=== PATIENT | male | born 1945 | race Caucasian/White ===

== ENCOUNTER 2022-02-04 13:40 | Emergency (ER) | payer MEDICARE, SELFPAY ==
[2022-02-04] VITALS (14 sets, daily range): BP systolic 132–166; BP diastolic 70–93; PULSE 56–67; RESP 10–23; TEMP 36.6; O2SAT 95–99
--- NOTE | 2022-02-04 13:30 | RT.EKG_ITS ---
APPROVED REPORT Exam: Resting ECG Reason for Exam: chest pain Patient Location: E HR:60 bpm ECG Measurements Heart Rate 60 AXIS IL 196 P 24 QRSd 93 QRS 40 QT 405 T 242 QTc 405 Conclusion Sinus rhythm...normal P axis, V-rate 60- 99 sinus rhythm, normal axis, normal intervals, flattened T waves inferior laterally
--- NOTE | 2022-02-04 14:15 | DI.CT_ITS ---
Exam(s) CT BRAIN NECK CTA EXAM: CT BRAIN NECK CTA CLINICAL HISTORY: dizziness, unsteadiness. TECHNIQUE: Imaging Protocol: Axial CT angiography was performed with multi-slice acquisition and mu lti-planar and 3D reconstructions. CONTRAST MATERIAL: Intravenous: Omnipaque 350 Contrast volume:structured data in ml COMPARISON: No exams were available for comparison FINDINGS: CT Head W/O and W contrast: Ventricles and Extra axial spaces: Normal in size and morphology for the patient's age. Hemorrhage: None. Cerebral parenchyma: Cerebral atrophy, otherwise normal. No visible white matter changes. Midline shift: None. Brainstem/Cerebellum: Normal. Calvarium: Normal. Visualized Paranasal sinuses/Mastoids: Mucous retention floor left maxillary sinus. Soft Tissues: Unremarkable. Enhancement: Normal. Orbits: Unremarkable. CTA Brain W: Internal Carotid Arteries: Petrous: Normal. Cavernous: Normal. Cerebral: Normal. Middle Cerebral Arteries: Right: No aneurysm, occlusion or significant stenosis. Left: No aneurysm, occlusion or significant stenosis. Anterior Cerebral Arteries: Right: No aneurysm, occlusion or significant stenosis. Left: No aneurysm, occlusion or significant stenosis. Posterior cerebral Arteries: Right: No aneurysm, occlusion or significant stenosis. Left: No aneurysm, occlusion or significant stenosis. Vertebral Arteries: Right: Focal calcification distal right vertebral artery. No aneurysm, occlusion or significant sten osis. Left: No aneurysm, occlusion or significant stenosis. Basilar Artery: No aneurysm, occlusion or significant stenosis. CTA Neck W: Common Carotid: Right: Moderate calcification at bulb. No aneurysm, occlusion or significant stenosis. Left: [id number] calcification at bulb. No aneurysm, occlusion or significant stenosis. External Carotid: Right: No aneurysm, occlusion or significant stenosis. Left: No aneurysm, occlusion or significant stenosis. Internal Carotid: Right: Moderate proximal calcification, mild stenosis. No aneurysm, occlusion or dissection. Tortuo us in midportion Left: [id number] proximal calcification. No aneurysm, occlusion or significant stenosis. Tortu ous and mid portion. Vertebral Artery: Right: No aneurysm, occlusion or significant stenosis. Left: No aneurysm, occlusion or significant stenosis. Lung Apices: Normal. Bones: Degenerative changes in the spine. Soft Tissues: Normal. IMPRESSION: 1. Focal calcification distal right vertebral artery without significant stenosis, otherwise normal C TA examination of the [place] [facility] [place]. 2. Atrophy, otherwise unremarkable CT Head. 3. Calcification at the common carotid bulb and proximal internal carotid arteries, right greater sil n left. Mild stenosis of proximal right internal carotid artery. Remaining vessels no significant s tenosis or evidence of dissection. 4. Results of this exam have been verbally communicated with the emergency department provider. RADIATION DOSE DELIVERED: 2,264.05mGy.cm Total DLP DATA REPOSITORY: All CT scans at this facility are submitted to the National Radiology Data Registry (NRDR) Dose Index Registry (DIR) with the [employer] (ACR). RADIATION OPTIMIZATION: All CT scans at this facility use at least one of these dose optimization te chniques: automated exposure control; mA and/or kV adjustment per patient size (includes targeted exa ms where dose is matched to clinical indication); or iterative reconstruction.
--- NOTE | 2022-02-04 14:31 | ED.GENADUL_ITS ---
Discharge Plan Disposition Patient Disposition: STILL A PATIENT Condition: Improving Discharge Details Chief Complaint: GenMedical Primary Care Provider: Eyal Sahu ED Provider: Eyal Harrell Home Meds and New Rx's Prescriptions: No Action No Known Home Meds 0RF Medical Decision Making 76-year-old male history of conductive and sensorineural hearing loss, presenting with resolved unsteadiness on his feet began around 1130 this morning, occurred while stepping out of his truck, self resolved, associated mild nausea no vomiting, denies headache or chest pain no shortness of breath, no history of stroke or NV, back to baseline per patient and his family, patient has normal speech normal cranial nerves normal strength no truncal ataxia, patient does endorse improved hearing in his left ear although no change in his hearing aid settings or prescriptions, consider inner ear process/vertigo versus orthostasis versus must consider TIA versus less likely acute CVA versus less likely ACS versus must consider electrolyte abnormality mild dehydration versus unlikely infectious process. Patient's TMs are clear bilaterally, behaving normally hemodynamically stable, will perform CT CTA head neck to assess vertebral circulation, basic labs, fluids, trial of meclizine close reassessment 15: 21 patient resting comfortably no acute distress asymptomatic, ambulatory without assistance, orthostatics were assessed at bedside with normal heart rate and blood pressure in a supine seated and standing position. Awaiting CT CTA head neck, urinalysis, will reassess symptomatology after fluids and meclizine. HPI General Date/Time Provider Initiated Documentation: 02/04/22 13:48 . HPI Narrative: 76-year-old male history of conductive hearing loss, presents with episode of unsteadiness on his feet that began around 1130 this morning, patient was getting out of his truck felt off balance, had slight nausea no vomiting, denies headache chest pain shortness of breath, denies history of prior stroke or NV. Behaving normally per . Episode self resolved and patient feels as if he is back to normal. Denies change in his hearing aid prescriptions however does feel like he is hearing better out of his left ear over the last day. No recent illnesses such as vomiting diarrhea or other systemic signs of illness. Related Data Home Medications Medication Instructions Recorded Confirmed Unknown [No Known Home Meds] 07/12/21 02/04/22 Allergies Allergy/AdvReac Type Severity Reaction Status Date / Time No Known Allergies Allergy Verified 02/04/22 13:53 General Stated Complaint: GenMedical KIANA: 3 Review of Systems Narrative: Review of Systems Constitutional: negative Eyes: negative ENT: negative Cardiovascular: negative Respiratory: negative Gastrointestinal: negative : negative Musculoskeletal: negative Skin: negative Neurologic: Unsteadiness Psych: negative PFSH All Active Problems Mixed conductive and sensorineural hearing loss, bilateral (Acute) Impairment of speech discrimination (Acute) External ear conductive hearing loss (Acute) Sensorineural hearing loss of both ears (Acute) Impacted cerumen of both ears (Acute) Mixed hearing loss, bilateral (Acute 10/18/13) Mixed hearing loss, bilateral (Acute 07/04/16) Vertigo (Acute 06/22/15) Family History Father , 58 Stroke Heart disease Mother , 87 No problems noted. Son No problems noted. Son No problems noted. 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 Pets and animals: Yes (2) Pets and animals: cat(s) What is your relationship status?: Panel score (0-1 are the most socially isolated patients): 1 Do you feel safe at home: Yes Do you feel safe in your relationship?: Yes Exam Narrative Exam Narrative: Physical Examination General: alert, awake, cooperative, resting comfortably, no acute distress HEENT: normocephalic, atraumatic; PERRL, EOM intact, conjunctiva normal; no nasal discharge; moist mucous membranes, oral and pharyngeal mucosa normal, tolerating secretions Neck: supple, trachea midline; full ROM Chest: normal to inspection Respiratory: normal respiratory effort, speaking in full sentences, clear to auscultation, no wheezing, rales or rhonchi Cardiac: regular rate, regular rhythm, S1S2 intact, no murmurs rubs or gallops GI: abdomen soft, non-tender, non-distended; no palpable mass or hepatosplenomegaly Skin: no lesions, rashes or trauma appreciated Neuro: AAOx3, cranial nerves II through XII intact, 5 out of 5 strength upper and lower extremities bilaterally, [id number] normal, no truncal ataxia, no nystagmus, normal speech, walking normally without ataxia Psych: Appropriate mood and affect Course Vital Signs Vital signs: Vital Signs Temperature 36.6 C 02/04/22 13:46 Pulse 67 02/04/22 13:46 Respiratory Rate 16 02/04/22 13:46 Blood Pressure 132/72 02/04/22 13:46 Pulse Oximetry 97 02/04/22 13:46 Temperature 36.6 C 02/04/22 13:46 Pulse 59 L 02/04/22 14:01 Pulse 61 02/04/22 14:01 Respiratory Rate 22 02/04/22 14:03 Respiratory Effort Non-Labored 02/04/22 14:03 Respiratory Depth Normal 02/04/22 14:03 Respiratory Pattern Normal 02/04/22 14:03 Blood Pressure 159/82 H 02/04/22 14:01 Blood Pressure Mean 101 02/04/22 14:01 Blood Pressure Position Supine 02/04/22 13:46 Pulse Oximetry 99 02/04/22 13:49 Oxygen Delivery Method Room Air 02/04/22 13:46 Oxygen Flow Rate 0 02/04/22 13:46 Pain Level 0 02/04/22 13:46
[2022-02-04] MEDS: Meclizine 12.5 MG TAB PO (14:39)
[2022-02-04] MEDS: Normal Saline 500 ML 1000 ML IV (14:40)
[2022-02-04 14:43] LABS: Abs Immature Grans 0.04 10^3/uL (0.0-0.06); Absolute Basophil Count 0.02 10^3/uL (0.0-0.2); Absolute Eosinophil Count 0.03 10^3/uL (0.0-0.7); Absolute Lymphocyte Count 0.98 10^3/uL (1.2-3.4); Absolute Monocyte Count 0.39 10^3/uL (0.1-0.8); Absolute Neutrophil Count 7.86 10^3/uL (1.2-6.7); Basophils % 0.2; Eosinophils % 0.3; HCT 45.3 % (40.0-50.0); HGB 14.9 g/dL (13.5-17.5); Immature Grans % 0.4; Lymphocytes % 10.5; MCH 30.4 pg (27.0-33.0); MCHC 32.9 % (32.0-36.0); MCV 92 fL (80-95); MPV 9.6 fL (8.0-11.0); Monocytes % 4.2; Neutrophils % 84.4; Platelet Count 217 10^3/uL (130-400); RDW-SD 44.4 fL; WBC 9.32 10^3/uL (4.4-10.8)
[2022-02-04 15:01] LABS: ALT 21 U/L (16-63); AST 20 U/L (15-37); Alkaline Phosphatase 83 U/L (46-116); Anion Gap 5.3 mmol/L (3-11); BUN 23 mg/dL (7-18); Bilirubin, Total 1.3 mg/dL (0.2-1.0); CO2 31.7 mmol/L (21.0-32.0); CREATININE 0.9 mg/dL (0.70-1.30); Chloride 104 mmol/L (98-107); Glucose 121 mg/dL (74-106); Potassium 3.8 mmol/L (3.5-5.1); Sodium 141 mmol/L (136-145); Total Protein 7.5 g/dL (6.4-8.2); Troponin I < 50 ng/L (<or=60)
[2022-02-04 15:07] LABS: ETHANOL BLOOD < 3.0 mg/dL (<10)
[2022-02-04 15:38] LABS: Bilirubin Negative (Negative); Blood Trace-intact (Negative); Clarity Clear (Clear); Glucose Negative (Negative); Ketones Negative (Negative); Leukocyte Esterase Large (Negative); Nitrite Negative (Negative); Specific Gravity 1.025 (1.005-1.025); Urobilinogen 0.2 EU/dL (Up TO 0.2); pH 6.5 (5-8)
[2022-02-04] MEDS: Omnipaque 350 MG/ML 100 ML BTL 85 ML IJ (15:54)
[2022-02-04 15:56] LABS: Bacteria Negative HPF (Negative); C & S Indicated? Yes; Casts Negative LPF (Negative); Crystals Negative HPF (Negative); Epithelial Cells Few HPF (Negative); Mucus Negative (Negative); Other Cells Moderate Renal (Negative); RBC 0-2 HPF (0-2); WBC >50 HPF (0-5)
--- NOTE | 2022-02-04 16:58 | ED.PROG_ITS ---
Date of service: 02/04/22 Time of Service: 16:58 Medical Decision Making Patient was signed out to me by my colleague Dr. Samir Carvalho. Please refer to his HPI, physical exam, assessment and plan. At this time on reassessment patient is feeling much better. I did get the patient up and ambulates around the department well, at a brisk pace, and shows no signs of ataxia, wide-based gait, or other abnormality. He shows no focal neurologic deficits on neurologic reassessment. No dysdiadochokinesia, no other abnormalities. Romberg test is stable. No horizontal or vertical nystagmus. Patient feels well and would like to go home. Symptoms at this time appear clinically consistent with peripheral vertigo. CT scan results have returned, CT/CTA shows no evidence of bleed, tumor, mass, or ischemic stroke. There is some atherosclerotic disease, but no evidence of significant stenosis that would suggest a stroke etiology. Evaluation of posterior vasculature also shows no abnormality per radiology. At this time with a stable exam, stable unremarkable work-up, I do feel that the patient is stable for discharge with close follow-up. He does have follow-up scheduled with his primary care provider tomorrow. Of note the patient's urinalysis is positive for greater than 50 WBCs, and large leuk esterase but negative nitrates. There are few epithelial cells, it is negative for bacteria. He has no abdominal tenderness. His results are atypical, and I do not think there is clinical evidence of a significant infection or pyelonephritis as he has no white count, bandemia or significant left shift. We will wait for culture results. I will send the patient with a prescription for an antibiotic with recommendations to take if he does develop symptoms of the cultures returned positive. We will also recommend that he discusses this with his primary care provider tomorrow as well. We will give meclizine for home use. I have extensively reviewed the treatment plan and discharge instructions with the patient and their family. I have addressed all patient concerns at this time. The patient and family was made aware of what symptoms to monitor for that would warrant a return to the emergency department. Discussed the plan with the patient and family, they demonstrate verbal understanding and agreement with our assessment and plan at this time. The documentation in this chart was dictated using [employer] dictation software. Please excuse any dictation errors. Sign Out Sign Out Data: Sign Out Comment: pending CT/CTA head neck, consider repeat trop; resolved ataxia, orthostatics normal, meclizine and fluids given; likely will need followup neuro,cards as outpatient Last updated by Eyal Harrell MD at 02/04/22 15:25 Discharge Plan Disposition Patient Disposition: HOME Condition: Good Discharge Details Clinical Impression: Vertigo Primary Care Provider: Eyal Sahu ED Provider: Raghav Amador Home Meds and New Rx's Prescriptions: New meclizine 25 mg tablet 25 mg PO BID PRNQty: 20 0RF cephalexin 500 mg capsule 500 mg PO QID 7 Days Qty: 28 0RF Discharge Instructions Instructions: Vertigo (ED) Additional Instructions: At this time your symptoms appear consistent with peripheral vertigo. Please rest, drink plenty of fluids, and take the meclizine as directed. The prescription has been sent to your pharmacy. Please follow-up closely with your primary care provider tomorrow as discussed. Additionally you do have a potential urinary tract infection. Although you do not have symptoms of this, your laboratory work-up is slightly concerning for. Because of this we will wait to see what culture results of your urine are. If these are positive for evidence of infection then we will recommend that you start taking the antibiotic as directed. You will be sent with a prescription for this that you can fill if the results are positive. If you notice any worsening of your symptoms, or any new symptoms such as vomiting, diarrhea, fever, chills, shortness of breath, chest pain, numbness, weakness, or fainting , please return immediately to the emergency department for reevaluation. Please follow up with your primary care provider as soon as possible for reassessment and reevaluation. As always, it was a pleasure participating in your medical care today. Referrals: Eyal Sahu [Primary Care Provider] -
[2022-02-04] MEDS: Meclizine 25 MG TAB 75 MG PO (17:00)
== END 2022-02-04 17:12 | disposition home or self-care (01) ==
PROVIDERS: Emergency Medicine; Emergency Provider Student in an Organized Health Care Education/Training Program; PCP Family Medicine
DX: H81.399 Other peripheral vertigo, unspecified ear (principal); R82.998 Other abnormal findings in urine; Z79.899 Other long term (current) drug therapy
CPT/HCPCS: 36415; 70496; 70498; 80053; 93005; 96360; 99285; 80320; 81003; 81015; 84484; 85025; 87086; 93010; 99284; J3490

== ENCOUNTER 2022-02-25 08:14 | Day surgery (SDC) | payer MEDICARE, SELFPAY ==
--- NOTE | 2022-02-21 08:59 | PDOC.ANES ---
Date of service: 02/21/22 Time of Service: 08:59 Anesthesia Note Report Anesthesia Note: Reviewed recent ER record for vertigo like symptoms on request of Ira TAVERA RN. Patient seems appropriate to continue for cataract surgery on Friday though I believe it would be prudent to perform his surgery as local/MAC without sedation due to possible potentiation of those vertigo symptoms again.
[2022-02-25 08:38] VITALS: BP 159/81; PULSE 54; RESP 16; TEMP 36.4; O2SAT 99
--- NOTE | 2022-02-25 08:43 | W.ANESPRE ---
General Info Date of Service Date Performed: 02/25/22 Height: 5 ft 11 in Weight: 76.8 kg Body Mass Index (BMI): 23.6 Surgical Procedure: Operation Date: 02/25/22 09:55 Proposed Procedure Side Surgeon p Cataract Extraction with IOL Implant Right Eyal Nicholson MD Meds Allergies and Home Medications Allergies Allergy/AdvReac Type Severity Reaction Status Date / Time No Known Allergies Allergy Verified 02/25/22 08:41 Home Medication Medication Instructions Recorded meclizine 25 mg tablet 25 mg PO BID PRN #20 tabs 02/04/22 Current Visit Medications: Current Medications Generic Name Dose Route Start Last Admin Trade Name Freq PRN Reason Stop Dose Admin Acetaminophen 1,000 mg 02/25/22 06:00 Acetaminophen 500 Mg Tab PO Q4H PRN PRN Miscellaneous Medication 0 ml 02/25/22 06:00 Prednisolone 1%, Moxifloxacin 0.5%, Nepafenac 0.1% 5ml Btl OD DIRECTED [facility] Miscellaneous Medication 0 ml 02/25/22 06:00 Tropicam./Phenyleph. (1/2.5%) 5 Ml Btl OD DIRECTED [facility] Tetracaine HCl 0 ml 02/25/22 06:00 Tetracaine 0.5% 4 Ml Btl OD DIRECTED [facility] PFSH Active Problems Active Problems: Problem Status Onset Code Posterior subcapsular age-related cataract, right eye H25.041 Cortical cataract of right eye H26.9 Nuclear sclerotic cataract of right eye H25.11 Mixed conductive and sensorineural hearing loss, bilateral H90.6 Impairment of speech discrimination H93.299 External ear conductive hearing loss H90.2 Sensorineural hearing loss of both ears H90.3 Impacted cerumen of both ears H61.23 Mixed hearing loss, bilateral 10/18/13 H90.6 Mixed hearing loss, bilateral 07/04/16 H90.6 Vertigo 06/22/15 R42 Tobacco Smoking/Tobacco Use Status: Never Alcohol Alcohol Intake: never Substance Use Substance use: Never Substance use type: does not use Vital Signs and Lab Results Vital Signs Most Recent Vital Signs in EMR: Most Recent Vital Signs Temp Pulse Resp BP Pulse Ox 36.4 C L 54 L 16 159/81 H 99 02/25/22 08:38 02/25/22 08:38 02/25/22 08:38 02/25/22 08:38 02/25/22 08:38 Lab Results Blood Type / Crossmatch: No Data to Display Complete Blood Count: White Blood Count 9.32 10^3/uL (4.4-10.8) 02/04/22 14:07 Red Blood Count 4.90 10^6/uL (4.36-5.78) 02/04/22 14:07 Hemoglobin 14.9 g/dL (13.5-17.5) 02/04/22 14:07 Hematocrit 45.3 % (40.0-50.0) 02/04/22 14:07 Platelet Count 217 10^3/uL (130-400) 02/04/22 14:07 Complete Metabolic Panel: Sodium Level 141 mmol/L (136-145) 02/04/22 14:07 Potassium Level 3.8 mmol/L (3.5-5.1) 02/04/22 14:07 Chloride Level 104 mmol/L (98-107) 02/04/22 14:07 Carbon Dioxide Level 31.7 mmol/L (21.0-32.0) 02/04/22 14:07 Blood Urea Nitrogen 23 mg/dL (7-18) H 02/04/22 14:07 Creatinine 0.9 mg/dL (0.70-1.30) 02/04/22 14:07 Estimated GFR/1.73 m2 >= 60.00 (mL/min/1.73m2) 02/04/22 14:07 Calcium Level 9.0 mg/dL (8.5-10.1) 02/04/22 14:07 Albumin 4.0 g/dL (3.4-5.0) 02/04/22 14:07 Glucose Level 121 mg/dL (74-106) H 02/04/22 14:07 Liver Function Panel: Alanine Aminotransferase (ALT/SGPT) 21 U/L (16-63) 02/04/22 14:07 Aspartate Amino Transf (AST/SGOT) 20 U/L (15-37) 02/04/22 14:07 Coagulation Panel: No Data to Display Cardiac Panel: Troponin I < 50 ng/L (<or=60) 02/04/22 Arterial Blood Gas: No Data to Display Venous Blood Gas: No Data to Display Pancreas Panel: No Data to Display Thyroid Panel: No Data to Display Infectious Disease: No Data to Display Blood Cultures: No Data to Display Toxicology Panel: Ethyl Alcohol Level < 3.0 mg/dL (<10) 02/04/22 14:07 Anesthesia Assessment and Plan Anesthesia History Personal History: No History of Anesthesia Complications Family History: No Family History of Anesthesia Complications Exercise Tolerance Exercise Tolerance: Metabolic Equivalents>4 Pertinent Negatives Pertinent Negatives: No Symptoms of GERD, No Major Cardiovascular Symptoms or Complaints, No Major Pulmonary Symptoms or Complaints and No History of CVA/TIA Cardiac & Pulmonary Exam Cardiac Exam: Normal S1/S2 Heart Sounds Pulmonary Exam: Clear Bilateral Breath Sounds Implantable Cardiac Device Does patient have a Pacemaker or an ICD?: No Airway Exam Known Difficult Airway: No Mallampati Class: 4 Mouth Opening: Normal (> 3cm) Thyromental Distance: Greater than 3 cm Neck Range of Motion: Full ROM Neck Circumference: Normal Teeth Condition: Normal Dentition ASA Classification ASA Score: ASA 2 Emergency Case?: No NPO Status NPO Status: NPO Clears >2 hours, Solids >8 hours Anesthesia Plan Resuscitation Status: Full Code Anesthesia Technique: MAC Anesthesia Airway Planned: Natural Airway Monitors Used: Standard Monitors
[2022-02-25 08:47] VITALS: BMI 23.6
[2022-02-25] MEDS: Tropicam./Phenyleph. (1/2.5%) 5 ML BTL OD ×3 (08:51→09:02)
[2022-02-25] MEDS: Tetracaine 0.5% 4 ML BTL OD (10:24)
[2022-02-25] MEDS: Balanced Salt Soln.-PLUS 500 ML BAG (10:25)
[2022-02-25] MEDS: Duovisc Viscoelastic System EACH 1 EACH (10:26)
[2022-02-25] MEDS: Lidocaine 2% Jelly 6 ML SYR (10:28)
[2022-02-25] MEDS: Povidone-Iodine Ophth 30 ML BTL (10:32)
[2022-02-25] MEDS: Trypan Blue 0.06% 0.5 ML SYR (10:33)
[2022-02-25 10:42] VITALS: BP 152/82; PULSE 58; RESP 16; TEMP 36; O2SAT 94
--- NOTE | 2022-02-25 10:43 | W.PM.DSUDISC ---
Discharge Plan Disposition Patient Disposition: HOME Condition: Good Discharge Details Attending Provider: Eyal Nicholson Primary Care Provider: Eyal Shau Home Meds and New Rx's Prescriptions: No Action meclizine 25 mg tablet 25 mg PO BID PRNQty: 20 0RF Discharge Instructions Stand Alone Forms: Post-op Topical Cataract, Salvador Gutiérrez ([facility]U) Discharge Orders Discharge Orders: Discharge Order (Routine); Ordered 02/25/22 Ordered By: Eyal Nicholson DS: Diagnosis Discharge Diagnosis (1) Posterior subcapsular age-related cataract, right eye: Status: Resolved (2) Cortical cataract of right eye: Status: Resolved (3) Nuclear sclerotic cataract of right eye: Status: Resolved
--- NOTE | 2022-02-25 10:44 | W.ANESPOSTOP ---
Postoperative Evaluation Date, Time and Location Date Performed: 02/25/22 Time Performed: 10:44 Patient Location: Day Surgery Unit Vital Signs Most Recent Imported Vital Signs: Most Recent Vital Signs Temp Pulse Resp BP Pulse Ox 36.4 C L 54 L 16 159/81 H 99 02/25/22 08:38 02/25/22 08:38 02/25/22 08:38 02/25/22 08:38 02/25/22 08:38 Most Recent Manually Entered Vital Signs: Adult Blood Pressure: 152/84 Heart Rate: 54 Respirations: 12 Oxygen Saturation (%): 99 Temperature (C): 36.3 C Pain Score (0-10 Scale): 0 Pain Score Most Recent Pain Score: Most Recent Pain Score Pain Level 0 02/25/22 08:38 Assessment Mental Status: Awake (Alert & Oriented to Patient Baseline) Airway and Respiratory Function: Patent airway with normal (patient baseline) respiratory exam Cardiovascular Function: Hemodynamically Stable Hydration Status: Adequately Hydrated Nausea & Vomiting: No Nausea or Vomiting Pain: Pt. Denies Any Pain Peripheral Nerve Block: Patient did not receive a nerve block
[2022-02-25 10:45] VITALS: BP 152/84; PULSE 54; RESP 12; TEMPC 36.3; O2SAT 99
--- NOTE | 2022-03-01 13:53 | ROE_ITS ---
Date of service: 02/25/22 Time of Service: 12:53 Operative Note Operative Note DATE OF PROCEDURE: 02/25/22 PRE-OP DIAGNOSIS: Nuclear/cortical/posterior subcapsular cataract, right eye Poor red reflex, right eye secondary to cataract POST-OP DIAGNOSIS: same PROCEDURE: Cataract extraction using phacoemulsification with intraocular lens implantation, right eye, using capsular staining with Vision Blue SURGEON: Eyal Nicholson ANESTHESIA TYPE: Local By Surgeon and MAC Refer to Anesthesia Record PATHOLOGY: none sent COMPLICATIONS: None Patient was transported to: same day Patient's condition: stable Implants: Elliot and Elliot / [employer] Tecnis [id number] Indications: Progressive visual loss due to cataract, right eye Procedure Description: CATARACT SURGERY OPERATIVE REPORT PREOPERATIVE DIAGNOSIS: 1. Nuclear/cortical/posterior subcapsular cataract, right eye 2. Poor red reflex secondary to #1 POSTOPERATIVE DIAGNOSIS: Same OPERATION: 1. Cataract extraction using phacoemulsification with posterior chamber intraoc ular lens implant, right eye. 2. Capsular staining with Vision Blue IOL: IOL Rehabilitation Attendant/Model: Elliot & Elliot / ARUN Tecnis [id number] IOL Power: + 23.0 diopters Optic Diameter: 6.0mm Haptic/Overall Diameter: 13.0mm PHACO INFO: Piyush Centurion Vision System with OZil and Active Fluidics Cumulative Dispersed Energy (CDE): 8.78 seconds SURGEON: Eyal Nicholson MD, MICHELLE ANESTHESIA: Monitored Anesthesia Care (MAC), with local sub-tenon's anesthetic infiltration COMPLICATIONS: None SPECIMENS: None INDICATIONS FOR PROCEDURE: Patient is a 76-year-old male with history of diminished visual acuity in his right eye secondary to the development of nuclear/cortical/posterior subcapsular cataract. The option of cataract surgery was offered to the patient and he felt he was symptomatic enough that he wished to proceed. PROCEDURE: The correct surgical eye was identified and marked as the right eye and the pupil was dilated in the preoperative area using mydriatics and cycloplegics. The dilated pupil size was 6.5 mm. The patient was brought to the operating room where cardiopulmonary monitoring was instituted and surgical time-out was performed, confirming the correct operative eye and IOL power. Topical anesthesia was administered and ophthalmic povidone-iodine 5% was instilled into the conjunctival fornices. Lidocaine gel was applied to the cornea and the claudia-ocular area was prepped with Betadine 10% solution and draped in the usual sterile fashion for intraocular surgery, including an aperture drape. A Tegaderm transparent film dressing was cut in half and used to cover the lashes and lid margins. Care was taken to sequester the lashes and lid margins under the Tegaderm dressing. A lid speculum was placed between the lids of the operative eye and the Piyush LuxOR Revalia operating microscope was maneuvered into position. Felton scissors were then used to make a conjunctival buttonhole approximately 6mm posterior to the limbus in the inferonasal quadrant. Blunt dissection was carried out to expose bare sclera, and a blunt-tipped sub-tenon?s anesthesia cannula was introduced and passed posteriorly along the globe where non- preserved plain lidocaine was injected into posterior sub-Tenon?s space. A sideport knife was used to make a paracentesis port inferotemporally. Intraocular phenylephrine/lidocaine was injected into the anterior chamber. Air was injected into the anterior chamber, followed by Vision Blue, which was painted over the anterior capsule and then irrigated out with BSS. The anterior chamber was filled with viscoelastic. A 2.4 mm keratome knife was used to create a 2-plane near clear corneal tunnel extending approximately 2 mm into clear cornea superior temporally.. A flap was raised on the anterior capsule and capsulorhexis forceps were used to complete a continuous curvilinear capsulorhexis of 5.0 mm. Balanced salt solution was then used to perform cortical cleaving hydrodissection and nuclear hydrodelineation until the lens could be freely rotated within the capsular bag. The lens nucleus was then disassembled and removed within the capsular bag and iris plane using phacoemulsification. Residual cortical material was removed using the I/A handpiece. The posterior capsule was carefully polished to remove as much residual lens epithelial cells as safely possible. The capsular bag was then inflated and the anterior chamber deepened with viscoelastic. The lens implant described above was inserted into the capsular bag using the ARUN [place] Injector. A Kuglen hook was used to dial the IOL into position. Residual viscoelastic was then removed first from posterior to the IOL, then from the anterior chamber using the I/A handpiece. The lens implant was noted to center nicely within the capsular bag. The incisions were stromally hydrated, and the anterior chamber was reformed using BSS. Then 0.5cc of moxifloxacin 1.0mg/ml were injected into the capsular bag and anterior chamber. The incisions were checked with a Weck spear and found to be secure. Several drops of ophthalmic povidone-iodine 5% were then applied to the eye followed by two drops of Imprimis combination prednisolone/moxifloxacin/nepafenac solution. The drapes were removed and a clear plastic protective eye shield was placed over the eye. The patient was then returned to Same Day Surgery in stable condition.
== END 2022-02-25 11:15 | disposition home or self-care (01) ==
PROVIDERS: PCP Family Medicine; Visit Provider Ophthalmology
PROC: (CPT 66984; principal; 2022-02-25 09:45)
DX: H25.811 Combined forms of age-related cataract, right eye (principal)
CPT/HCPCS: 66984; V2632

== ENCOUNTER 2022-03-08 10:30 | Day surgery (SDC) | payer MEDICARE, SELFPAY ==
--- NOTE | 2022-03-08 09:43 | HPE_ITS ---
Assessment and Plan Assessment and plan (1) Cortical cataract of left eye: Status: Acute Assessment and plan: Assessment: Visually significant cataract of the left eye. Plan: Cataract extraction with lens implantation of the left eye. (2) Nuclear sclerotic cataract of left eye: Status: Acute Assessment and plan: Assessment: Visually significant cataract of the left eye. Plan: Cataract extraction with lens implantation of the left eye. (3) Posterior subcapsular age-related cataract of left eye: Status: Acute Assessment and plan: Assessment: Visually significant cataract of the left eye. Plan: Cataract extraction with lens implantation of the left eye. History of Present Illness History of Present Illness Chief Complaint: Progressive decreased vision, left eye Narrative: Patient is a 76-year-old gentleman with history of progressive decreased vision in both eyes secondary to the development of bilateral nuclear and cortical cataract. He noted significant difficulty with blurred vision at both distance and near. He has significant difficulty with glare at night and in the winter with reflection from the snow. On examination he was noted to have moderate bilateral nuclear cataract with corrected vision of 20 XD right eye, 20/30 left eye. He is significantly symptomatic and he desires cataract surgery and attempt to improve and maximize his vision. Glare testing resulted in a significant decrease in his visual acuity, right eye more than left. He underwent cataract surgery in the right eye on 02/25/2022 and postoperatively has regained uncorrected visual acuity of 20/30 in the right eye. He now presents for cataract surgery in the left eye. Review of Systems All systems reviewed & are unremarkable except as noted in HPI and below PFSH All Active Problems Vertigo (Acute 06/22/15) Mixed hearing loss, bilateral (Acute 07/04/16) Mixed hearing loss, bilateral (Acute 10/18/13) Impacted cerumen of both ears (Acute) Sensorineural hearing loss of both ears (Acute) External ear conductive hearing loss (Acute) Impairment of speech discrimination (Acute) Mixed conductive and sensorineural hearing loss, bilateral (Acute) Cortical cataract of left eye (Acute) Nuclear sclerotic cataract of left eye (Acute) Posterior subcapsular age-related cataract of left eye (Acute) Surgical History Hx of right cataract extraction Family History Father , 58 Stroke Heart disease Mother , 87 No problems noted. Son No problems noted. Son No problems noted. 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 Corrected visual acuity is 20/30 in the left eye. Intraocular pressure is 10 in each eye. Extraocular motility is normal. Slit-lamp examination reveals a well-positioned PCIOL in the right eye. The left eye shows moderate cortical with moderate nuclear cataract as well. Mild posterior subcapsular cataract is present OU. Funduscopic examination reveals disc cupping of 0.6 OD 0.5 OS. Drusen are noted in both maculas with RPE changes. Peripheral retina and vitreous is normal. Resp Auscultation: clear to auscultation bilaterally Cardio Rate: regular rate Rhythm: regular rhythm
[2022-03-08 10:43] VITALS: BP 145/79; PULSE 55; RESP 16; TEMP 36.4; O2SAT 97
[2022-03-08] MEDS: Tropicam./Phenyleph. (1/2.5%) 5 ML BTL OS ×3 (10:57→11:11)
--- NOTE | 2022-03-08 12:01 | W.ANESPRE ---
General Info Date of Service Date Performed: 03/08/22 Height: 5 ft 11.5 in Weight: 78.1 kg Body Mass Index (BMI): 23.6 Surgical Procedure: Operation Date: 03/08/22 13:40 Proposed Procedure Side Surgeon p Cataract Extraction with IOL Implant Left Eyal Nicholson MD Meds Allergies and Home Medications Allergies Allergy/AdvReac Type Severity Reaction Status Date / Time No Known Allergies Allergy Verified 03/08/22 10:42 Home Medication Medication Instructions Recorded meclizine 25 mg tablet 25 mg PO BID PRN #20 tabs 02/04/22 Current Visit Medications: Current Medications Generic Name Dose Route Start Last Admin Trade Name Freq PRN Reason Stop Dose Admin Acetaminophen 1,000 mg 03/08/22 06:00 Acetaminophen 500 Mg Tab PO Q4H PRN PRN Miscellaneous Medication 0 ml 03/08/22 06:00 Prednisolone 1%, Moxifloxacin 0.5%, Nepafenac 0.1% 5ml Btl OS DIRECTED RAVEN Miscellaneous Medication 0 ml 03/08/22 06:00 03/08/22 11:11 Tropicam./Phenyleph. (1/2.5%) 5 Ml Btl OS 1 drp DIRECTED RAVEN Administration Tetracaine HCl 0 ml 03/08/22 06:00 Tetracaine 0.5% 4 Ml Btl OS DIRECTED RAVEN PFSH Active Problems Active Problems: Problem Status Onset Code Vertigo 06/22/15 R42 Mixed hearing loss, bilateral 07/04/16 H90.6 Mixed hearing loss, bilateral 10/18/13 H90.6 Impacted cerumen of both ears H61.23 Sensorineural hearing loss of both ears H90.3 External ear conductive hearing loss H90.2 Impairment of speech discrimination H93.299 Mixed conductive and sensorineural hearing loss, bilateral H90.6 Nuclear sclerotic cataract of right eye H25.11 Cortical cataract of right eye H26.9 Posterior subcapsular age-related cataract, right eye H25.041 Cortical cataract of left eye H26.9 Nuclear sclerotic cataract of left eye H25.12 Posterior subcapsular age-related cataract of left eye H25.042 Surgical History Surgical History Hx of right cataract extraction Tobacco Smoking/Tobacco Use Status: Never Alcohol Alcohol Intake: never Substance Use Substance use: Never Substance use type: does not use Vital Signs and Lab Results Vital Signs Most Recent Vital Signs in EMR: Most Recent Vital Signs Temp Pulse Resp BP Pulse Ox 36.4 C L 55 L 16 145/79 H 97 03/08/22 10:43 03/08/22 10:43 03/08/22 10:43 03/08/22 10:43 03/08/22 10:43 Lab Results Blood Type / Crossmatch: No Data to Display Complete Blood Count: No Data to Display Complete Metabolic Panel: No Data to Display Liver Function Panel: No Data to Display Coagulation Panel: No Data to Display Cardiac Panel: No Data to Display Arterial Blood Gas: No Data to Display Venous Blood Gas: No Data to Display Pancreas Panel: No Data to Display Thyroid Panel: No Data to Display Infectious Disease: No Data to Display Blood Cultures: No Data to Display Toxicology Panel: No Data to Display Anesthesia Assessment and Plan Anesthesia History Personal History: No History of Anesthesia Complications Family History: No Family History of Anesthesia Complications Exercise Tolerance Exercise Tolerance: Metabolic Equivalents>4 Pertinent Negatives Pertinent Negatives: No Symptoms of GERD Cardiac & Pulmonary Exam Cardiac Exam: Normal S1/S2 Heart Sounds Pulmonary Exam: Clear Bilateral Breath Sounds Implantable Cardiac Device Does patient have a Pacemaker or an ICD?: No Airway Exam Known Difficult Airway: No Mallampati Class: 4 Mouth Opening: Normal (> 3cm) Thyromental Distance: Greater than 3 cm Neck Range of Motion: Full ROM Neck Circumference: Normal Teeth Condition: Normal Dentition ASA Classification ASA Score: ASA 2 Emergency Case?: No NPO Status NPO Status: NPO Clears >2 hours, Solids >8 hours Anesthesia Plan Resuscitation Status: Full Code Anesthesia Technique: MAC Anesthesia Airway Planned: Natural Airway Monitors Used: Standard Monitors
[2022-03-08 12:07] VITALS: BMI 23.6
[2022-03-08] MEDS: Tetracaine 0.5% 4 ML BTL OS (12:33)
[2022-03-08] MEDS: Balanced Salt Soln.-PLUS 500 ML BAG (12:40)
[2022-03-08] MEDS: Lidocaine 2% Jelly 6 ML SYR (12:41)
[2022-03-08] MEDS: Duovisc Viscoelastic System EACH 1 EACH (12:41)
[2022-03-08] MEDS: Povidone-Iodine Ophth 30 ML BTL (12:42)
--- NOTE | 2022-03-08 13:01 | W.PM.DSUDISC ---
Discharge Plan Disposition Patient Disposition: HOME Condition: Good Discharge Details Attending Provider: Eyal Nicholson Primary Care Provider: Eyal Sahu Home Meds and New Rx's Prescriptions: No Action meclizine 25 mg tablet 25 mg PO BID PRNQty: 20 0RF Discharge Instructions Stand Alone Forms: Post-op Topical Cataract, Salvador Gutiérrez (DSU) Discharge Orders Discharge Orders: Discharge Order (Routine); Ordered 03/08/22 Ordered By: Eyal Nicholson DS: Diagnosis Discharge Diagnosis (1) Cortical cataract of left eye: Status: Resolved (2) Nuclear sclerotic cataract of left eye: Status: Resolved (3) Posterior subcapsular age-related cataract of left eye: Status: Resolved
--- NOTE | 2022-03-08 13:02 | W.PM.OP ---
Date of service: 03/08/22 Time of Service: 12:03 Operative Note Operative Note DATE OF PROCEDURE: 03/08/22 PRE-OP DIAGNOSIS: Nuclear/cortical/posterior subcapsular cataract, left eye POST-OP DIAGNOSIS: same PROCEDURE: Cataract extraction using phacoemulsification with intraocular lens implant, left eye SURGEON: Eyal Nicholson ANESTHESIA TYPE: Local By Surgeon and MAC Refer to Anesthesia Record PATHOLOGY: none sent COMPLICATIONS: None Patient was transported to: same day Patient's condition: stable Implants: Elliot and Elliot / [employer] Opt[employer] Tecnis [id number] Indications: Progressive decreased vision due to cataract, left eye Procedure Description: CATARACT SURGERY OPERATIVE REPORT PREOPERATIVE DIAGNOSIS: 1. Nuclear/cortical/posterior subcapsular cataract, left eye POSTOPERATIVE DIAGNOSIS: Same OPERATION: 1. Cataract extraction using phacoemulsification with posterior chamber intraocular lens implant, left eye. IOL: IOL [facility] Health Aide/Model: Elliot & Elliot / ARUN Tecnis [id number] IOL Power: + 22.5 diopters IOL Serial Number: [id number] Optic Diameter: 6.0 mm Haptic/Overall Diameter: 13.0 mm PHACO INFO: Piyush InMy[employer]urion Vision System with OZil and Active Fluidics Cumulative Dispersed Energy (CDE): 6.77 seconds SURGEON: Eyal Nicholson MD, MICHELLE ANESTHESIA: Monitored [facility] (MAC), with local sub-tenon's anesthetic infiltration COMPLICATIONS: None SPECIMENS: None INDICATIONS FOR PROCEDURE: The patient is a 76-year-old gentleman with history of diminished visual acuity in both eyes secondary to the development of significant bilateral nuclear/cortical/posterior subcapsular cataract. He has already undergone cataract surgery in the right eye and is doing well postoperatively. He now presents for cataract surgery in the left eye. PROCEDURE: The correct surgical eye was identified and marked as the left eye and the pupil was dilated in the preoperative area using mydriatics and cycloplegics. The dilated pupil size was 6.0 mm. He elected to proceed without oral sedation.. The patient was brought to the operating room where cardiopulmonary monitoring was instituted and surgical time-out was performed, confirming the correct operative eye and IOL power. Topical anesthesia was administered and ophthalmic povidone-iodine 5% was instilled into the conjunctival fornices. Lidocaine gel was applied to the cornea and the claudia-ocular area was prepped with Betadine 10% solution and draped in the usual sterile fashion for intraocular surgery, including an aperture drape. A Tegaderm transparent film dressing was cut in half and used to cover the lashes and lid margins. Care was taken to sequester the lashes and lid margins under the Tegaderm dressing. A lid speculum was placed between the lids of the operative eye and the Piyush LuxOR Revalia operating microscope was maneuvered into position. Felton scissors were then used to make a conjunctival buttonhole approximately 6mm posterior to the limbus in the inferonasal quadrant. Blunt dissection was carried out to expose bare sclera, and a blunt-tipped sub-tenon?s anesthesia cannula was introduced and passed posteriorly along the globe where non-preserved plain lidocaine was injected into posterior sub-Tenon?s space. A sideport knife was used to make a paracentesis port superiorly/superiortemporally. Intraocular phenylephrine/lidocaine was injected int the anterior chamber.. The anterior chamber was filled with viscoelastic. A 2.4mm keratome knife was used to construct a 2-plane near-clear corneal tunnel extending 2.0mm into clear cornea temporally. A flap was raised on the anterior capsule and capsulorhexis forceps were used to complete a continuous curvilinear capsulorhexis of 5.0 mm. Balanced salt solution was then used to perform cortical cleaving hydrodissection and nuclear hydrodelineation until the lens could be freely rotated within the capsular bag. The lens nucleus was then disassembled and removed within the capsular bag and iris plane using phacoemulsification. Residual cortical material was removed using the 45-degree angled silicone I/A tip with 0.3mm port. The posterior capsule was carefully polished to remove as much residual lens epithelial cells as safely possible. The capsular bag was then inflated and the anterior chamber deepened with viscoelastic. The lens implant described above was inserted into the capsular bag using the ARUN [place] Injector. A Kuglen hook was used to dial the IOL into position. Residual viscoelastic was then removed first from posterior to the IOL, then from the anterior chamber using the I/A handpiece. The lens implant was noted to center nicely within the capsular bag. The incisions were stromally hydrated, and the anterior chamber was reformed using BSS. Then 0.5cc of moxifloxacin 1.0mg/ml were injected into the capsular bag and anterior chamber. The incisions were checked with a Weck spear and found to be secure. Several drops of ophthalmic povidone-iodine 5% were then applied to the eye followed by two drops of Imprimis combination prednisolone/moxifloxacin/nepafenac solution. The drapes were removed and a clear plastic protective eye shield was placed over the eye. The patient was then returned to Same Day Surgery in stable condition.
[2022-03-08 13:04] VITALS: BP 163/86; PULSE 63; RESP 17; TEMP 36.2; O2SAT 98
--- NOTE | 2022-03-08 13:11 | W.ANESPOSTOP ---
Postoperative Evaluation Date, Time and Location Date Performed: 03/08/22 Time Performed: 12:12 Patient Location: Day Surgery Unit Vital Signs Most Recent Imported Vital Signs: Most Recent Vital Signs Temp Pulse Resp BP Pulse Ox 36.4 C L 55 L 16 145/79 H 97 03/08/22 10:43 03/08/22 10:43 03/08/22 10:43 03/08/22 10:43 03/08/22 10:43 Most Recent Manually Entered Vital Signs: Adult Blood Pressure: 163/86 Heart Rate: 63 Respirations: 17 Oxygen Saturation (%): 98 Temperature (C): 36.2 C Pain Score (0-10 Scale): 0 Pain Score Most Recent Pain Score: Most Recent Pain Score Pain Level 0 03/08/22 10:43 Assessment Mental Status: Arousable with meaningful communication Airway and Respiratory Function: Patent airway with normal (patient baseline) respiratory exam Cardiovascular Function: Hemodynamically Stable Hydration Status: Adequately Hydrated Nausea & Vomiting: No Nausea or Vomiting Pain: Pt. Denies Any Pain Peripheral Nerve Block: Patient did not receive a nerve block
[2022-03-08 13:14] VITALS: BP 163/86; PULSE 63; RESP 17; TEMPC 36.2; O2SAT 98
--- NOTE | 2022-03-08 13:48 | W.ANESPOSTOP ---
Postoperative Evaluation Date, Time and Location Date Performed: 03/08/22 Time Performed: 12:55 Patient Location: Day Surgery Unit Vital Signs Most Recent Imported Vital Signs: Most Recent Vital Signs Temp Pulse Resp BP Pulse Ox 36.2 C L 63 17 163/86 H 98 03/08/22 13:04 03/08/22 13:04 03/08/22 13:04 03/08/22 13:04 03/08/22 13:04 Most Recent Vital Signs Temp Pulse Resp BP Pulse Ox 36.4 C L 55 L 16 145/79 H 97 03/08/22 10:43 03/08/22 10:43 03/08/22 10:43 03/08/22 10:43 03/08/22 10:43 Pain Score Most Recent Pain Score: Most Recent Pain Score Pain Level 0 03/08/22 13:04 Assessment Mental Status: Awake (Alert & Oriented to Patient Baseline) Airway and Respiratory Function: Patent airway with normal (patient baseline) respiratory exam Cardiovascular Function: Hemodynamically Stable Hydration Status: Adequately Hydrated Nausea & Vomiting: No Nausea or Vomiting Pain: Pt. Denies Any Pain Peripheral Nerve Block: Patient did not receive a nerve block
== END 2022-03-08 10:31 | disposition home or self-care (01) ==
PROVIDERS: PCP Family Medicine; Visit Provider Ophthalmology
PROC: (CPT 66984; principal; 2022-03-08 13:30)
DX: H25.812 Combined forms of age-related cataract, left eye (principal)
CPT/HCPCS: 66984; V2632

== ENCOUNTER → 2023-11-18 02:33 | Outpatient (CLI) | payer MEDICARE, SELFPAY ==
--- NOTE | 2023-11-18 | DI.US_ITS ---
Exam(s) US CAROTID EXAM: US CAROTID CLINICAL HISTORY: RT CAROTID BRUIT,R09.89. TECHNIQUE: Ultrasound carotids performed using grayscale, color-flow, and spectral Doppler imaging. COMPARISON: CT CT BRAIN NECK CTA from 02/04/2022 FINDINGS: RIGHT CAROTID ARTERY: Plaque: Moderate calcific plaque seen throughout on the right. Velocity elevation: Please see below. LEFT CAROTID ARTERY: Plaque: Moderate calcific plaque throughout on the left. Velocity elevation: None. VERTEBRAL ARTERIES: There is antegrade flow in the left vertebral artery. Retrograde flow seen in th e right vertebral artery. Measurements: R Bulb: 67.1cm/s PS / 8.9cm/s ED R CCA: 127.7cm/s PS / 17.7cm/s ED R ECA: 100cm/s PS / 7cm/s ED R ICA Prox: 156.1cm/s PS / 26.2cm/s ED R ICA Mid: 104.3cm/s PS / 21.6cm/s ED R ICA Distal: 97.9cm/s PS /18.8cm/s ED R Vert: 59cm/s PS / 17.6cm/s ED R SVR: 1.2 R DVR: 1.5 L Bulb: 78cm/s PS / 14.4cm/s ED L CCA: 108.7cm/s PS / 19.4cm/s ED L ECA: 88.2cm/s PS / 0cm/s ED L ICA Prox: 90cm/s PS / 21.5cm/s ED L ICA Mid: 106.2cm/s PS / 23.3cm/s ED L ICA Distal: 100.8cm/s PS / 25.1cm/s ED L Vert: 106.4cm/s PS / 18.1cm/s ED L SVR: 1 L DVR: 1.2 IMPRESSION: 1. Moderate calcific plaque throughout the vertebral arteries bilaterally. 2. Velocity elevation seen in the proximal right ICA consistent with 50-69 percent stenosis. 3. No hemodynamically significant velocity elevations on the left. 4. Retrograde right vertebral artery. Criteria for Carotid Stenosis: Normal: ICA PSV <125 cm/s no plaque or intimal thickening is visible. <50% stenosis: ICA PSV <125 cm/s and plaque or intimal thickening is visible. 50-69% stenosis: ICA PSV is 125-250 cm/s and plaque is visible. >70% stenosis to near occlusion: ICA PSV >250 cm/s with visible plaque and luminal narrowing. Unexpected findings DATA REPOSITORY:
== END ==
PROVIDERS: PCP Family Medicine; Visit Provider Family Medicine
DX: R09.89 Other specified symptoms and signs involving the circulatory and respiratory systems (principal)
CPT/HCPCS: 93880

== ENCOUNTER 2025-06-01 01:16 | Outpatient (CLI) | payer MEDICARE, SELFPAY ==
--- NOTE | 2025-06-01 | DI.MRI_ITS ---
Exam(s) MR BRAIN WO/W EXAM: MR BRAIN WO/W CLINICAL HISTORY: TINGLING OF BOTH UPPER EXTREMITIES,R20.2,WORSENING MEMORY LOSS TECHNIQUE: Multiplanar multisequence MRI of the brain was performed. CONTRAST MATERIAL: IV Contrast: 13 mL of Dotarem contrast administered. COMPARISON: CT CT BRAIN NECK CTA from 02/04/2022 FINDINGS: VENTRICLES AND EXTRA AXIAL SPACES: The size of the extra-axial spaces is unchanged. Ventricles are within normal limits for the patient's age. HEMORRHAGE: None. CEREBRAL PARENCHYMA: No focus of restricted diffusion to suggest acute infarct. No space-occupying lesion identified. There are few scattered foci of hyperintense signal seen in the white matter on the FLAIR and T2 weighted images most consistent with small vessel ischemic disease. MIDLINE SHIFT: None. BRAINSTEM/CEREBELLUM: Normal. CALVARIUM: Normal. ENHANCEMENT: No suspicious enhancement identified. VISUALIZED PARANASAL SINUSES/MASTOIDS: There is a small mucous retention cyst in the left maxillary sinus. The remaining visualized paranasal sinuses are clear. [facility] [place]: Normal flow void. PITUITARY GLAND: Unremarkable. OTHER FINDINGS: IMPRESSION: There is no evidence of an acute infarct, intracranial mass or abnormal enhancement. DATA REPOSITORY:
[2025-06-01] MEDS: Normal Saline Flush 10 ML SYR IVP (10:42)
[2025-06-01] MEDS: Gadoterate meglumine 20 ML SYRINGE IVP (10:42)
== END 2025-06-01 01:36 ==
PROVIDERS: PCP Family Medicine; Visit Provider Family Medicine
DX: R20.0 Anesthesia of skin (principal)
CPT/HCPCS: 70553

== ENCOUNTER 2025-07-12 20:14 | Emergency (ER) | payer MEDICARE, SELFPAY ==
[2025-07-12 20:18] VITALS: BP 177/78; PULSE 59; RESP 20; TEMP 36.8; O2SAT 96
--- NOTE | 2025-07-12 20:24 | W.ED.GENAD ---
Discharge Plan Disposition Patient Disposition: Home Condition: Stable Discharge Details Clinical Impression: Hernia Primary Care Provider: Eyal Sahu ED Provider: Raghav Lopez Home Meds and New Rx's Prescriptions: No Action prednisone 5 mg tablet 5 mg PO DAILY prednisone 1 mg tablet 2 mg PO DAILY Discharge Instructions Instructions: Abdominal wall hernias Additional Instructions: You were seen in the emergency department for your hernia of your right inguinal region, we placed you in Trendelenburg position and reduced your hernia. Please follow-up with a referral to general surgery and wear your hernia belt as needed, please return for any other emergent concerns like worsening pain around the hernia site, complete constipation and nausea and vomiting. Referrals: [facility] [Provider Group] Eyal Sahu [Primary Care Provider, Medicine] [facility] General Date/Time Provider Initiated Documentation: 07/12/25 20:21. HPI Narrative: 79 year-old male presents to ED today by POV/ambulating with his with a chief complaint of known chronic R inguinal hernia has been out today with onset around 1700. Quality described as can't get his hernia to reduce tonight- usually it is easily reduced, wears a hernia belt for this, no radiation to scrotal pain, redness, swelling, distention to R inguinal region. Severity is described as mild to moderate at time of ED presentation. Palliating factors include attempted self-reduction at home. Provoking factors include nothing specific. Patient not anticoagulated. Related Data Home Medications ?Medication ?Instructions ?Recorded ?Confirmed prednisone 1 mg tablet 2 mg PO DAILY 07/12/25 07/12/25 prednisone 5 mg tablet 5 mg PO DAILY 07/12/25 07/12/25 Allergies Allergy/AdvReac Type Severity Reaction Status Date / Time No Known Allergies Allergy Verified 07/12/25 20:22 General Stated Complaint: Male Reproductive Problem KIANA: 3 Review of Systems All systems reviewed & are unremarkable except as noted in HPI and below Exam Narrative Exam Narrative: GENERAL APPEARANCE: Well-nourished, non-toxic, awake and alert, atraumatic, no acute distress. SKIN: Warm, pink, dry, intact, without rashes/lesions/ulcerations. HEAD: Normocephalic, atraumatic, normal hair distribution for gender/age. EYES: Normal conjunctiva, no exudates on lids/lashes. ENT: Nares patent, no circumoral cyanosis, no facial swelling NECK: Supple, trachea midline, painless cervical ROM. LUNGS/CHEST: Non-labored respirations, normal A/P diameter, symmetrical expansion, no chest wall deformity HEART (CV/PV): No peripheral edema, no JVD. ABDOMEN: Soft, non-distended, no guarding, R inguinal hernia, non-tender, no scrotal involvement, cremasteric reflexes intact. MSK: Normal ROM, no swelling/deformity to bilateral UEs or LEs, moving all extremities without weakness, no cyanosis, spine midline without tenderness, normal curvature. NEURO: Mental Status AAOx4 - alert to person, place, time, events No facial droop, no forehead involvement. Motor: No focal weakness - strength 5/5 in bilateral UEs and LEs, proximal and distal, symmetric. Sensory: sensation intact to light touch globally. Gait normal: patient ambulated without ataxia into ED room. PSYCH: euthymic, cooperative, pleasant, appropriate speech Course Vital Signs Vital signs: Vital Signs Temperature 36.8 C 07/12/25 20:18 Pulse 59 L 07/12/25 20:18 Respiratory Rate 20 07/12/25 20:18 Blood Pressure 177/78 H 07/12/25 20:18 Pulse Oximetry 96 07/12/25 20:18 Temperature 36.8 C 07/12/25 20:18 Pulse 59 L 07/12/25 20:18 Respiratory Rate 20 07/12/25 20:18 Blood Pressure 177/78 H 07/12/25 20:18 Blood Pressure Position Sitting 07/12/25 20:18 Pulse Oximetry 96 07/12/25 20:18 Oxygen Delivery Method Room Air 07/12/25 20:18 Oxygen Flow Rate 0 07/12/25 20:18 Medical Decision Making This dictation utilizes [id number] dictation software and may contain unedited grammatical errors. 79 year-old male presents to ED today by POV/ambulating with his with a chief complaint of known chronic R inguinal hernia has been out today with onset around 1700. Quality described as can't get his hernia to reduce tonight- usually it is easily reduced, wears a hernia belt for this, no radiation to scrotal pain, redness, swelling, distention to R inguinal region. Severity is described as mild to moderate at time of ED presentation. Palliating factors include attempted self-reduction at home. Provoking factors include nothing specific. Patients' medical history: Hard of hearing, known right inguinal hernia. Family and social history: Lives at home with his . Pertinent exam findings / vital signs include no palpable tenderness or skin changes to the right inguinal area, there is a bulge consistent with hernia without scrotal involvement, cremasteric reflexes intact, otherwise benign abdomen. Differential / pathologies of concern include hernia, unlikely incarceration. Diagnostic studies of: - None. Interventions of: - Patient was placed in Trendelenburg upon arrival and he applied gentle self reducing pressure upward on his hernia of the right inguinal region for about 10 minutes for a trial of reduction prior to extensive workup with success. ED Course/Assessment/Plan: 79-year-old male presents with right inguinal hernia, there is no palpable loops of bowel felt in the scrotum he has no scrotal swelling cremasteric reflexes were intact, he wears a hernia belt for this. I placed him in Trendelenburg immediately on arrival and had him apply gentle constant pressure upward on the area of the hernia with successful reduction upon reexamination and resolution of any discomfort, counseled him on strict return criteria for any persistent bulging hernias or any other emergent concerns. Findings not consistent with incarcerated hernia. Disposition of Hernia. Patient verbalized understanding of the plan and return to ED criteria and engaged in shared decision making. Medical Records Medical records reviewed: Yes I reviewed the patient's medical records. 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 Son No problems noted. Son No problems noted. 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
[2025-07-12 21:00] VITALS: RESP 18
== END 2025-07-12 21:02 | disposition home or self-care (01) ==
PROVIDERS: Emergency Provider Physician Assistant; PCP Family Medicine
DX: K40.90 Unilateral inguinal hernia, without obstruction or gangrene, not specified as recurrent (principal); R10.31 Right lower quadrant pain
CPT/HCPCS: 99283; 99282